=== PATIENT | female | born 1990 | race Caucasian/White ===

== ENCOUNTER 2018-01-25 18:41 | Emergency (ER) | payer BC ==
[2018-01-25 18:47] VITALS: BP 116/67
== END 2018-01-25 18:57 | disposition left against medical advice (07) ==
LOC: ER 18:41
DX: Z53.21 Procedure and treatment not carried out due to patient leaving prior to being seen by health care provider (principal); R10.9 Unspecified abdominal pain

== ENCOUNTER 2019-07-26 10:28 | Emergency (ER) | payer BC, OTHER ==
--- NOTE | 2019-07-26 12:04 | ER Document Report ---
ED Medical Screen (RME) - General Chief Complaint: Near Syncope Stated Complaint: POSSIBLE SYNCOPE Time Seen by Provider: 07/26/19 11:59 Notes: 28-year-old female presents to the emergency department with a syncopal episode while at work. She states she was sitting at her desk and started to get tunnel vision the next thing she knew she woke up and she was twitching. Nobody witnessed it. She does not know how long she was out for. She states that she came to the emergency department and she had one more episode where she felt dizzy and started to have a little bit tunnel vision but did not syncopized. She denies any recent illness, does have allergies and has had some sinus pressure and rhinorrhea over the last week, denies any acute shortness of breath or chest pain, denies palpitations, denies any limb weakness/paresthesias/ti ngling. NEURO: A &O X 3, normal speech, normal gait, PERRL, EOMI, SILT, follows commands in all 4 extremities, no gross abnormalities of cranial nerves, no focal neuro deficits, no pronator drift, [id number] testing normal, rapid alternating hand movements normal, rhcf-so-glba normal, fan blade truer strength 5/5 bilateral, 5/5 strength in both proximal and distal upper and lower extremities I have greeted and performed a rapid initial assessment of this patient. A comprehensive ED assessment and evaluation of the patient, analysis of test results and completion of medical decision making process will be conducted by an additional ED providers. - Related Data Allergies/Adverse Reactions: amoxicillin [Amoxicillin] Allergy (Verified 07/26/19 10:31) cefpodoxime [From Vantin] Allergy (Verified 07/26/19 10:31) clindamycin [Clindamycin] Allergy (Verified 07/26/19 10:31) ibuprofen [Ibuprofen] Allergy (Verified 07/26/19 10:31) Penicillins Allergy (Verified 07/26/19 10:31) Sulfa (Sulfonamide Antibiotics) Allergy (Verified 07/26/19 10:31) sulfamethoxazole [From Septra] Allergy (Verified 07/26/19 10:31) trimethoprim [From Septra] Allergy (Verified 07/26/19 10:31) Past Medical History - Social History Chew tobacco use (# tins/day): No Frequency of alcohol use: None Drug Abuse: None Neurological Medical History: Reports: Hx Migraine Past Surgical History: Reports: Hx Adenoidectomy, Hx Tonsillectomy - Immunizations Immunizations up to date: Yes Physical Exam - Vital signs Vitals: Temp Pulse Resp BP Pulse Ox 99.3 F 86 16 140/86 H 98 07/26/19 10:32 07/26/19 10:32 07/26/19 10:32 07/26/19 10:32 07/26/19 10:32 Course - Vital Signs Vital signs: Temp Pulse Resp BP Pulse Ox 99.3 F 86 16 140/86 H 98 07/26/19 10:32 07/26/19 10:32 07/26/19 10:32 07/26/19 10:32 07/26/19 10:32
--- NOTE | 2019-07-26 12:26 | RADIOLOGY REPORT (SQ) ---
EXAM DESCRIPTION: CHEST 2 VIEWS COMPLETED DATE/TIME: 07/26/2019 12:12 pm REASON FOR STUDY: near syncope, cough COMPARISON: None. EXAM PARAMETERS: NUMBER OF VIEWS: two views TECHNIQUE: Digital Frontal and Lateral radiographic views of the chest acquired. RADIATION DOSE: NA LIMITATIONS: none FINDINGS: LUNGS AND PLEURA: No opacities, masses or pneumothorax. No pleural effusion. MEDIASTINUM AND HILAR STRUCTURES: No masses or contour abnormalities. HEART AND VASCULAR STRUCTURES: Heart normal size. No evidence for failure. BONES: No acute findings. HARDWARE: None in the chest. OTHER: No other significant finding. IMPRESSION: NO ACUTE RADIOGRAPHIC FINDING IN THE CHEST. TECHNICAL DOCUMENTATION: JOB ID: [id number] [employer]- All Rights Reserved Reading location - IP/workstation name: [email or web address]
[2019-07-26 13:13] LABS: ABSOLUTE EOSINOPHILS # (AUTO) 0.2 10^3/uL (0.0-0.6); ABSOLUTE MONOCYTES (AUTO) 0.5 10^3/uL (0.1-1.4); ABSOLUTE NEUT (AUTO) 2.6 10^3/uL (1.7-8.2); BASOPHILS % (AUTO) 0.4 % (0-2); EOSINOPHILS % (AUTO) 4.2 % (0-6); HEMATOCRIT 39.1 % (36.0-47.0); HEMOGLOBIN 13.1 g/dL (12.0-15.5); LYMPHOCYTES % (AUTO) 38.2 % (13-45); MEAN CORPUSCULAR HEMOGLOBIN 28.9 pg (27.0-33.4); MEAN CORPUSCULAR HGB CONC 33.6 g/dL (32.0-36.0); MEAN CORPUSCULAR VOLUME 86 fl (80-97); MONOCYTES % (AUTO) 9.1 % (3-13); PLATELET COUNT 297 10^3/uL (150-450); RED BLOOD COUNT 4.54 10^6/uL (3.72-5.28); RED CELL DISTRIBUTION WIDTH 12.6 % (11.5-14.0); SEGMENTED NEUTROPHILS % (AUTO) 48.1 % (42-78); TOTAL CELLS COUNTED % (AUTO) 100 %; WHITE BLOOD COUNT 5.3 10^3/uL (4.0-10.5)
[2019-07-26 13:14] LABS: APPEARANCE,URINE CLEAR; BILIRUBIN,URINE NEGATIVE (NEGATIVE); COLOR,URINE YELLOW; GLUCOSE, URINE NEGATIVE (NEGATIVE); KETONES,URINE NEGATIVE (NEGATIVE); LEUKOCYTE ESTERASE,URINE NEGATIVE (NEGATIVE); NITRITE,URINE NEGATIVE (NEGATIVE); PROTEIN,URINE NEGATIVE (NEGATIVE); URINE SPECIFIC GRAVITY 1.018; UROBILINOGEN,URINE NEGATIVE mg/dL (<2.0)
[2019-07-26 13:31] LABS: ALBUMIN 4.8 g/dL (3.5-5.0); ALKALINE PHOSPHATASE 75 U/L (38-126); ANION GAP 8 (5-19); ASPARTATE AMINO TRANSFERASE 26 U/L (14-36); BILIRUBIN,DIRECT 0.1 mg/dL (0.0-0.4); BILIRUBIN,TOTAL 0.1 mg/dL (0.2-1.3); BLOOD UREA NITROGEN 13 mg/dL (7-20); CALCIUM 9.8 mg/dL (8.4-10.2); CARBON DIOXIDE 29 mmol/L (22-30); CHLORIDE 102 mmol/L (98-107); GLUCOSE 92 mg/dL (75-110); TOTAL PROTEIN 7.5 g/dL (6.3-8.2)
--- NOTE | 2019-07-26 14:18 | RADIOLOGY REPORT (SQ) ---
EXAM DESCRIPTION: CT HEAD WITHOUT COMPLETED DATE/TIME: 07/26/2019 2:10 pm REASON FOR STUDY: syncope/ cuevas COMPARISON: None. TECHNIQUE: Axial images acquired through the brain without intravenous contrast. Images reviewed wi th bone, brain and subdural windows. Additional sagittal and coronal reconstructions were generated. Images stored on PACS. All CT scanners at this facility use dose modulation, iterative reconstruction, and/or weight based d osing when appropriate to reduce radiation dose to as low as reasonably achievable (ALARA). [facility]: Dose Right [facility]: CareDose [facility]: Dose Right [facility]: Teradose 4D [facility]: [employer] RADIATION DOSE: CT Rad equipment meets quality standard of care and radiation dose reduction techniq ues were employed. CTDIvol: 53.2 mGy. DLP: 991 mGy-cm. mGy. LIMITATIONS: None. FINDINGS: VENTRICLES: Normal size and contour. CEREBRUM: No masses. No hemorrhage. No midline shift. No evidence for acute infarction. Normal gra y/white matter differentiation. No areas of low density in the white matter. CEREBELLUM: No masses. No hemorrhage. No alteration of density. No evidence for acute infarction. EXTRAAXIAL SPACES: No fluid collections. No masses. ORBITS AND GLOBE: No intra- or extraconal masses. Normal contour of globe without masses. CALVARIUM: No fracture. PARANASAL SINUSES: No fluid or mucosal thickening. SOFT TISSUES: No mass or hematoma. OTHER: No other significant finding. IMPRESSION: NORMAL BRAIN CT WITHOUT CONTRAST. EVIDENCE OF ACUTE STROKE: NO. COMMENT: Quality ID # [id number]: Final reports with documentation of one or more dose reduction techniques (e.g., Automated exposure control, adjustment of the mA and/or kV according to patient size, use of iterative reconstruction technique) TECHNICAL DOCUMENTATION: JOB ID: [id number] [employer]- All Rights Reserved Reading location - IP/workstation name: [email or web address]
--- NOTE | 2019-07-26 15:19 | ER Document Report ---
ED Dizziness/Weakness - General Chief Complaint: Near Syncope Stated Complaint: POSSIBLE SYNCOPE Time Seen by Provider: 07/26/19 11:59 Primary Care Provider: JESSIKA RUIZ FNP [Primary Care Provider] - Follow up as needed Mode of Arrival: Ambulatory Information source: Patient - [facility] Notes: Patient presents complaining of an episode at work in which she apparently passed out. She states she was sitting her desk when she began to feel dizzy. She states that her vision changed but cannot describe the change. She states she then woke up with her head on a desk and having some shaking. She states since then she has had no more episodes of passing out but has had some of the episodes of dizziness and vision changes. She denies any current headache or headache during the syncope. She states this morning she did have a headache and took sumatriptan. She states she is been taking sumatriptan for years though. No new medicines. No previous episodes of similar symptoms. No recent trauma. No bleeding. She does not believe that she is currently . No [id number] medications. No new workout or eating regimens. No rashes. She is been feeling relatively normal up until this episode. No chest pain or shortness of breath. The symptoms were intermittent. They were brief. Nothing made it better or worse. There is no known radiation of the symptoms. - Related Data Allergies/Adverse Reactions: amoxicillin [Amoxicillin] Allergy (Verified 07/26/19 10:31) cefpodoxime [From Vantin] Allergy (Verified 07/26/19 10:31) clindamycin [Clindamycin] Allergy (Verified 07/26/19 10:31) ibuprofen [Ibuprofen] Allergy (Verified 07/26/19 10:31) Penicillins Allergy (Verified 07/26/19 10:31) Sulfa (Sulfonamide Antibiotics) Allergy (Verified 07/26/19 10:31) sulfamethoxazole [From Septra] Allergy (Verified 07/26/19 10:31) trimethoprim [From Septra] Allergy (Verified 07/26/19 10:31) Past Medical History - General Information source: Patient - Social History Smoking Status: Never Smoker Chew tobacco use (# tins/day): No Frequency of alcohol use: None Drug Abuse: None Family History: Reviewed & Not Pertinent Patient has suicidal ideation: No Patient has homicidal ideation: No Neurological Medical History: Reports: Hx Migraine Past Surgical History: Reports: Hx Adenoidectomy, Hx Tonsillectomy - Immunizations Immunizations up to date: Yes Review of Systems - Review of Systems Constitutional: denies: Chills, Fever Cardiovascular: Dizziness, Lightheaded. denies: Chest pain, Dyspnea Respiratory: denies: Cough, Short of breath Gastrointestinal: denies: Abdominal pain, Vomiting Genitourinary: denies: Burning, Dysuria Skin: denies: Lesions, Rash Neurological/Psychological: Lost consciousness, Headaches -: Yes All other systems reviewed and negative Physical Exam - Vital signs Vitals: Temp Pulse Resp BP Pulse Ox 99.3 F 86 16 140/86 H 98 07/26/19 10:32 07/26/19 10:32 07/26/19 10:32 07/26/19 10:32 07/26/19 10:32 Interpretation: Normal - General General appearance: Appears well, Alert - HEENT Head: Normocephalic, Atraumatic Eyes: Normal Pupils: PERRL - Respiratory Respiratory status: No respiratory distress Chest status: Nontender Breath sounds: Normal Chest palpation: Normal - Cardiovascular Rhythm: Regular Heart sounds: Normal auscultation Murmur: No - Abdominal Inspection: Normal Distension: No distension Bowel sounds: Normal Tenderness: Nontender Organomegaly: No organomegaly - Back Back: Normal, Nontender - Extremities General upper extremity: Normal inspection, Nontender, Normal color, Normal ROM, Normal temperature General lower extremity: Normal inspection, Nontender, Normal color, Normal ROM, Normal temperature, Normal weight bearing. No: Hannah's sign - Neurological Neuro grossly intact: Yes Cognition: Normal Orientation: AAOx4 [place] Coma Scale Eye Opening: Spontaneous [place] Coma Scale Verbal: Oriented [place] Coma Scale Motor: Obeys Commands [place] Coma Scale Total: 15 Speech: Normal Cranial nerves: Normal Cerebellar coordination: Normal Motor strength normal: LUE, RUE, LLE, RLE Additional motor exam normals: Equal drug and alcohol treatment specialist Sensory: Normal - Psychological Associated symptoms: Normal affect, Normal mood - Skin Skin Temperature: Warm Skin Moisture: Dry Skin Color: Normal Course - Re-evaluation Re-evalutation: 07/26/19 15:19 Patient reassessed just now. Vital signs are unremarkable. Laboratory work-up was unremarkable. Exam is unchanged. I can find no evidence of significant abnormality that would have caused syncope. I did recommend to the patient that if she should have persistent episodes she should discuss referral to neurology with her primary care physician. - Vital Signs Vital signs: Temp Pulse Resp BP Pulse Ox 99.3 F 72 20 132/75 H 100 07/26/19 10:32 07/26/19 13:14 07/26/19 13:13 07/26/19 13:14 07/26/19 13:13 - Laboratory Result Diagrams: 07/26/19 12:42 07/26/19 12:42 Laboratory results interpreted by me: 07/26/19 12:42 Total Bilirubin 0.1 L - EKG Interpretation by Nc EKG shows normal: Sinus rhythm Rate: Normal Rhythm: NSR - 76 Discharge - Discharge Clinical Impression: Syncope Qualifiers: Syncope type: unspecified Qualified Code(s): R55 - Syncope and collapse Condition: Stable Disposition: HOME, SELF-CARE Instructions: Syncopal Episode ([facility]) Forms: Return to Work Referrals: JESSIKA RUIZ FNP [Primary Care Provider] - Follow up in 3-5 days
[2019-07-26 15:51] VITALS: BP 115/83
--- NOTE | 2019-07-26 21:02 | EKG REPORT ---
SEVERITY:- NORMAL ECG - SINUS RHYTHM : Confirmed by: Yvette Copeland MD 26-Jul-2019 21:01:12
== END 2019-07-26 15:51 | disposition home or self-care (01) ==
LOC: ER 10:28
DX: R55 Syncope and collapse (principal); R42 Dizziness and giddiness; H53.9 Unspecified visual disturbance; G43.909 Migraine, unspecified, not intractable, without status migrainosus; Z79.899 Other long term (current) drug therapy; Z88.0 Allergy status to penicillin; Z88.1 Allergy status to other antibiotic agents; Z88.8 Allergy status to other drugs, medicaments and biological substances; Z88.2 Allergy status to sulfonamides
CPT/HCPCS: 36415; 70450; 71046; 80053; 81001; 81025; 84443; 84484; 85025; 93005; 93010; 99284